=== PATIENT | female | born 1945 | race Caucasian/White ===

== ENCOUNTER 2019-01-01 13:39 | Outpatient (CLI) | payer MEDICARE, MEDICAID | END 2019-01-01 23:59 | disposition home or self-care (01) | LOC: VAS 13:39 | PROVIDERS: ATTEND Nurse Practitioner Family | DX: R59.0 Localized enlarged lymph nodes (principal); M79.604 Pain in right leg | CPT/HCPCS: 93971 ==

== ENCOUNTER 2019-08-11 06:58 | Day surgery (SDC) | payer MEDICARE, MEDICAID ==
[~2019-08-11] VITALS: Ht 157.5 cm; Wt 80.5 kg
[2019-08-11 07:10] VITALS: BP 150/74
[2019-08-11] MEDS ORDERED: MIDAZolam 5mg/5ml vial ONE (07:11)
[2019-08-11] MEDS ORDERED: fentaNYL/PF 50MCG/1 ML 2ML syringe ONE (07:11)
[2019-08-11] MEDS ORDERED: LIDOcaine Viscous 15ml cup ONE (07:12)
[2019-08-11] MEDS ORDERED: ASPI81TA52 PO (07:16)
[2019-08-11] MEDS ORDERED: UMEC1DIS IH (07:16)
[2019-08-11] MEDS ORDERED: fluticasone 50mcg (07:21)
[2019-08-11] MEDS ORDERED: LORA10TA7 PO (07:22)
[2019-08-11] MEDS ORDERED: LEVO50TA8 PO (07:22)
[2019-08-11] MEDS ORDERED: ALBU8.5H8 INH (07:23)
[2019-08-11 08:49] VITALS: BP 140/73
[2019-08-11 08:59] VITALS: BP 126/54
[2019-08-11 09:09] VITALS: BP 136/69
[2019-08-11 09:15] VITALS: BP 132/72
== END 2019-08-11 09:25 | disposition home or self-care (01) ==
LOC: GI LAB 06:58
PROVIDERS: ATTEND Internal Medicine Gastroenterology
DX: K29.50 Unspecified chronic gastritis without bleeding (principal)
CPT/HCPCS: 43239; G0500; J2250; J3010; J7040; 88305; 88342; 99152; A4620

== ENCOUNTER 2025-09-22 12:57 | Outpatient (CLI) | payer MEDICARE, MEDICAID ==
[~2025-09-22 12:57] MED LIST: ALBU8.5H17 INH; ASPI81TA52 PO; LEVO50TA8 PO; LORA10TA7 PO; UMEC1DIS IH; fluticasone 50mcg
--- NOTE | 2025-09-22 14:59 | RADIOLOGY REPORT ---
Procedure: CT CT CHEST Reason for study/Clinical History: PAIN IN THORACIC SPINE Comparison Study: None Exam Date: 09/22/2025 01:07 PM TECHNIQUE: Multidetector CT of the chest was performed from the lung apices to the upper abdomen without the use of intravenous contract. Axial, coronal and sagittal multiplanar reformats were performed. Radiation Dose Information: CT Dose: CTDI volume is 25 mGy. Dose-length product is 250 mGy*cm The dose indicators for CT are the volume Computed Tomography (CT) Dose Index (CTDIvol) and the Dose Length Product (DLP), and are measured in units of mGy and mGy-cm, respectively. These indicators are not patient dose, but values generated from the CT scanner acquisition factors. The report includes radiation exposure data for exposures received during this examination. FINDINGS: Lower neck: Normal thyroid. Lungs: Multiple lung rads 2 nodules measuring up to 6 mm left upper lobe Heart/Vascular Structures: Normal heart size. No pericardial effusion. Lymph Nodes: No adenopathy Pleura: No pleural effusion or significant pneumothorax. Musculoskeletal: No acute osseous abnormality. Soft tissues: Normal. Upper abdomen: Limited portions of the upper abdomen are unremarkable. IMPRESSION: Multiple lung rads 2 nodules measuring up to 6 mm left upper lobe Lung rads 2, follow-up in 1 year. Radiation optimization: All CT scans at this facility use at least one of these dose optimization techniques: automated exposure control mA and/or kV adjustment per patient size (includes targeted exams where dose is matched to clinical indication) or iterative reconstruction.
== END 2025-09-22 23:59 | disposition home or self-care (01) ==
LOC: RAD 12:57
PROVIDERS: ATTEND Anesthesiology Pain Medicine
DX: R91.8 Other nonspecific abnormal finding of lung field (principal); G58.8 Other specified mononeuropathies; M54.6 Pain in thoracic spine
CPT/HCPCS: 71250